=== PATIENT | male | born 2000 | race Caucasian/White ===

== ENCOUNTER → 2021-08-19 10:43 | Outpatient (CLI) | payer BC, SELFPAY ==
--- NOTE | 2021-08-19 11:15 | DI.RAD.S_ITS ---
PROCEDURE: XR KUB INDICATIONS: hematuria TECHNIQUE: One view of the abdomen acquired. COMPARISON: None. FINDINGS: Surgical changes and devices: None. Bowel: Scattered small bowel and colonic gas. No dilated loops of bowel seen. Soft tissues: Possible kidney stone at the right kidney measuring 0.4 cm. Alternatively, this could be a calcified granuloma in the spleen. No suspicious abdominal calcifications. Visualized solid organ contours appear normal in size. Bones: No suspicious bony lesions. IMPRESSION: Small calcification in the right lateral abdomen. This could represent a right kidney stone or calcified granuloma in the liver. Nonobstructive bowel gas pattern. Consider CT KUB for further evaluation. Dictated by: Jeffrey Mcdonnell M.D. on 08/19/2021 at 12:51 Approved by: Jeffrey Mcdonnell M.D. on 08/19/2021 at 12:54
== END ==
PROVIDERS: Referring Provider Nurse Practitioner Family; Visit Provider Nurse Practitioner Family
DX: R30.0 Dysuria (principal); R31.9 Hematuria, unspecified
CPT/HCPCS: 74018; 87086

== ENCOUNTER → 2021-08-25 14:35 | Outpatient (CLI) | payer BC, SELFPAY ==
--- NOTE | 2021-08-25 14:38 | DI.CT.S_ITS ---
PROCEDURE: CT KIDNEY URETER BLADDER (KUB) INDICATIONS: possible kidney stone TECHNIQUE: Axial sections were acquired from the lung bases to the pubic symphysis. Coronal and sagittal reformats were performed. For radiation dose reduction, the following was used: automated exposure control, adjustment of mA and/or kV according to patient size. COMPARISON: None. FINDINGS: Image quality: Excellent. Lung bases: Unremarkable. Heart: No significant findings. URINARY: Right Kidney: No stones or hydronephrosis. Incidental note made of 2.2 cm simple cyst. Right Ureter: No hydroureter. Left Kidney: No stones or hydronephrosis. Left Ureter: No hydroureter. Bladder: Normal wall thickness. No stones. ABDOMEN: Liver: Unremarkable. Gallbladder: Unremarkable. Biliary ducts: Unremarkable. Pancreas: Unremarkable. Spleen: Unremarkable. Adrenal Glands: Unremarkable. Stomach and Bowel: Stomach, small bowel loops, and colon are unremarkable. Peritoneum: No abnormal intraperitoneal fluid. No free air. Ventral Wall: No hernia. Abdominal Nodes: No enlarged retroperitoneal or mesenteric lymph nodes. Vessels: Aorta and inferior vena cava are normal in size. PELVIS: Pelvic Organs: Unremarkable. Pelvic Nodes: Unremarkable. Miscellaneous: No inguinal hernias are seen. Bones: Unremarkable. IMPRESSION: 1. No evidence of renal stone, ureteral stone, or hydronephrosis. 2. No evidence of acute abdominal process. Dictated by: Omari Olivera M.D. on 08/25/2021 at 15:33 Approved by: Omari Olivera M.D. on 08/25/2021 at 15:35
== END ==
PROVIDERS: Referring Provider Nurse Practitioner Family; Visit Provider Nurse Practitioner Family
DX: R31.9 Hematuria, unspecified (principal)
CPT/HCPCS: 74176

== ENCOUNTER → 2021-09-16 15:41 | Outpatient (CLI) | payer BC, SELFPAY ==
[2021-09-16 16:50] LABS: Appearance Urine UA CLEAR; Bilirubin Urine UA NEGATIVE (NEGATIVE); Color Urine UA YELLOW; Glucose Urine UA NEGATIVE (Negative); Ketones Urine UA NEGATIVE (NEGATIVE); Leukocyte Esterase Urine UA TRACE (NEGATIVE); Nitrite Urine UA NEGATIVE (Negative); Occult Blood Urine UA TRACE-INTACT (Negative); Protein Urine UA NEGATIVE (Negative); Urobilinogen Urine UA 0.2 E.U./dL (0.2)
[2021-09-16 16:51] LABS: Add Manual Diff / Slide Review NO; Basophils Absolute Auto 0 /uL (0-100); Basophils Percent Auto 0.5 % (0-2); Eosinophils Absolute Auto 200 /uL (0-450); Eosinophils Percent Auto 2.8 % (2-4); Hematocrit 44.3 % (41-53); Hemoglobin 15.9 g/dL (13.5-17.5); Lymphocytes Absolute Auto 2400 /uL (1100-4500); Mean Corpuscular HGB Conc 35.8 % (30-36); Mean Corpuscular Hemoglobin 30.9 PG (26-34); Mean Corpuscular Volume 86.2 fL (80-100); Monocytes Absolute Auto 600 /uL (0-900); Monocytes Percent Auto 8.1 % (3-14); Neutrophils Absolute Auto 4200 /uL (1500-7000); Neutrophils Percent Auto 56.6 % (50-75); Platelet Count 232 X10^3/uL (150-400); Red Blood Cell Count 5.14 X10^6/uL (4.5-5.9); Red Cell Distribution Width 12.6 % (11.6-14.8); White Blood Cell Count 7.4 X10^3/uL (4.5-11.0)
[2021-09-16 17:38] LABS: Alanine Aminotransferase 40 IU/L (<50); Albumin 4.7 g/dL (3.5-5.0); Albumin Globulin Ratio 1.7 (1.0-2.8); Alkaline Phosphatase 47 U/L (38-126); Aspartate Aminotransferase 35 IU/L (17-59); BUN Creatinine Ratio 21.2 (6-22); Bilirubin Total 0.5 mg/dL (0.2-1.3); Blood Urea Nitrogen 18 mg/dL (9-20); Calcium 9.3 mg/dL (8.4-10.2); Carbon Dioxide 25 mmol/L (22-32); Chloride 105 mmol/L (98-107); Estimated Glomerular Filt Rate > 60 mL/min (>60); Globulin 2.8 g/dL (1.7-4.1); Glucose 95 mg/dL (70-100); HEMOLYSIS 18 (0-50); Potassium 4.2 mmol/L (3.4-5.1); Sodium 138 mmol/L (137-145); Total Protein 7.5 g/dL (6.3-8.2)
[2021-09-16 18:28] LABS: Bacteria Urine None Seen; Culture Indicated Urine Cult Not Indicated; RBC Urine 10-30/HPF (0-5/HPF); Squamous Epithelial Cell Urine 1-5 /HPF (0-5/HPF); WBC Urine 1-5/HPF (0-5/HPF)
[2021-09-16 19:44] LABS: Urine N gonorrhoeae NOT DETECTED
[2021-09-16 20:20] LABS: Urine Chlamydia NOT DETECTED
== END ==
PROVIDERS: PCP Family Medicine; Referring Provider Family Medicine; Visit Provider Family Medicine
DX: R31.0 Gross hematuria (principal)
CPT/HCPCS: 36415; 80053; 81001; 85025; 87491; 87591

== ENCOUNTER 2022-04-12 12:47 | Emergency (ER) | payer OTHER, SELFPAY ==
[2022-04-12 12:49] VITALS: BP 146/83; PULSE 72; RESP 16; TEMP 36.9; O2SAT 99; BMI 36.7
[2022-04-12 13:47] LABS: RBC Urine 30-100/HPF (0-5/HPF); WBC Urine 1-5/HPF (0-5/HPF)
[2022-04-12 13:48] LABS: Bacteria Urine None Seen; Culture Indicated Urine Specimen Cultured
--- NOTE | 2022-04-12 16:00 | DI.CT.S_ITS ---
PROCEDURE: CT ABDOMEN PELVIS W CON INDICATIONS: hematuria TECHNIQUE: After the administration of oral and IV contrast, axial sections were acquired from the lung bases to the pubic symphysis. Coronal and sagittal reformats were performed. For radiation dose reduction, the following was used: automated exposure control, adjustment of mA and/or kV according to patient size. COMPARISON: [facility], CT, CT KIDNEY URETER BLADDER (KUB), 08/25/2021, 14:39. FINDINGS: Image quality: Excellent. Lung bases: Unremarkable. Heart: No significant findings. ABDOMEN: Liver: No focal lesion. Gallbladder: Not distended. Biliary ducts: Unremarkable. Pancreas: Unremarkable. Spleen: Unremarkable. Adrenal Glands: No nodule. Kidneys and Ureters: No hydronephrosis. Simple right renal cyst measuring 2 cm. Stomach and Bowel: Stomach, small bowel loops, and colon are unremarkable. A few colonic diverticuli. Normal appendix. Peritoneum: No abnormal intraperitoneal fluid. No free air. Ventral Wall: No hernia. Abdominal Nodes: No retroperitoneal or mesenteric adenopathy by size criteria. Vessels: Aorta and inferior vena cava are normal in size. PELVIS: Pelvic Organs: Unremarkable. Bladder: Distended. No stone. Pelvic Nodes: No enlarged lymph nodes. Miscellaneous: No inguinal hernias are seen. Bones: No suspicious lesion. Small bone islands. IMPRESSION: No acute abnormality identified. No hydronephrosis. No kidney stones seen. No free fluid. Dictated by: Jeffrey Mcdonnell M.D. on 04/12/2022 at 18:15 Approved by: Jeffrey Mcdonnell M.D. on 04/12/2022 at 18:19
[2022-04-12 16:26] LABS: Add Manual Diff / Slide Review NO; Basophils Absolute Auto 100 /uL (0-100); Eosinophils Absolute Auto 100 /uL (0-450); Eosinophils Percent Auto 1.5 % (2-4); Hematocrit 47.8 % (41-53); Hemoglobin 16.4 g/dL (13.5-17.5); Lymphocytes Absolute Auto 2900 /uL (1100-4500); Lymphocytes Percent Auto 33.6 % (25-40); Mean Corpuscular HGB Conc 34.2 % (30-36); Mean Corpuscular Hemoglobin 29.9 PG (26-34); Mean Corpuscular Volume 87.4 fL (80-100); Monocytes Absolute Auto 700 /uL (0-900); Monocytes Percent Auto 8.3 % (3-14); Neutrophils Absolute Auto 4900 /uL (1500-7000); Neutrophils Percent Auto 55.6 % (50-75); Platelet Count 284 X10^3/uL (150-400); Red Blood Cell Count 5.47 X10^6/uL (4.5-5.9); White Blood Cell Count 8.7 X10^3/uL (4.5-11.0)
[2022-04-12 16:38] LABS: Alanine Aminotransferase 41 IU/L (<50); Albumin 4.8 g/dL (3.5-5.0); Albumin Globulin Ratio 1.5 (1.0-2.8); Alkaline Phosphatase 57 U/L (38-126); Aspartate Aminotransferase 30 IU/L (17-59); BUN Creatinine Ratio 15.2 (6-22); Bilirubin Total 0.6 mg/dL (0.2-1.3); Blood Urea Nitrogen 15 mg/dL (9-20); Carbon Dioxide 26 mmol/L (22-32); Chloride 103 mmol/L (98-107); Estimated Glomerular Filt Rate > 60 mL/min (>60); Globulin 3.3 g/dL (1.7-4.1); Glucose 98 mg/dL (70-100); HEMOLYSIS 15 (0-50); Lipase 66 U/L (23-300); Sodium 139 mmol/L (137-145); Total Protein 8.1 g/dL (6.3-8.2)
[2022-04-12 18:29] VITALS: BP 119/62; PULSE 76; RESP 18; O2SAT 100
--- NOTE | 2022-04-12 18:56 | ED.MALEGU ---
HPI - Male Genitourinary <Kelli Emery PA-C - Last Filed: 04/12/22 19:18> General Chief complaint: Urogenital-Male Stated complaint: peeing blood/clots Time Seen by Provider: 04/12/22 14:31 Source: patient Mode of arrival: Ambulatory History of Present Illness HPI Narrative: 22-year-old male presents to the ED with a month of gross hematuria and small clots. Patient states that he has a history of hematuria, was evaluated last year for it with no resolution on etiology. Patient states that he has had the hematuria on and off for the last 2 years, and it spontaneously stops and starts. Patient also states that he had some hematuria in his childhood with no known etiology. Patient states that he was worked up by a urologist last year with no findings. Patient denies fever, chills, chest pain, shortness of breath, nausea, vomiting, dysuria, abdominal pain, flank pain, lightheadedness, dizziness, syncope. Patient states that he does feel the need to strain in order to urinate, is able to urinate, however feels that it is incomplete. Related Data Previous Rx's Medication Instructions Recorded phenazopyridine 200 mg tablet 200 mg PO TID 6 doses #9 tabs 09/16/21 (Pyridium) sulfamethoxazole 800 1 tab PO BID #20 tabs 09/16/21 mg-trimethoprim 160 mg tablet (Bactrim DS) Allergies Allergy/AdvReac Type Severity Reaction Status Date / Time diphenhydramine Allergy Mild Swelling Verified 04/12/22 12:49 [From Benadryl] Review of Systems <Kelli Emery PA-C - Last Filed: 04/12/22 19:18> Review of Systems ROS Unobtainable: All systems reviewed & are unremarkable except as noted in HPI and below Constitutional Constitutional: Denies chills, Denies fatigue, Denies fever(s), Denies frequent falls, Denies lethargy and Denies weakness Eyes Eyes: Denies change in vision, Denies eye discharge, Denies irritation and Denies loss of vision ENT Ears, Nose, Mouth, and Throat: Denies change in voice, Denies dizziness, Denies neck pain, Denies sore throat and Denies throat swelling Cardiovascular Cardiovascular: Denies chest pain, Denies irregular heart rhythm, Denies lightheadedness, Denies palpitations, Denies dyspnea, Denies dyspnea on exertion and Denies orthopnea Respiratory Respiratory: Denies cough, Denies dyspnea, Denies dyspnea on exertion and Denies wheezing Gastrointestinal Gastrointestinal: Denies abdominal pain, Denies change in bowel habits, Denies diarrhea, Denies nausea and Denies vomiting Genitourinary Genitourinary: Reports hematuria, Denies flank pain, Denies urinary incontinence and Denies urinary urgency Musculoskeletal Musculoskeletal: Denies back pain, Denies muscle weakness, Denies neck pain, Denies numbness and Denies tingling Integumentary/Breasts Skin/Breast: Denies pruritus, Denies erythema, Denies rash and Denies wounds Neurologic Neurologic: Denies behavioral changes, Denies confusion, Denies dizziness, Denies frequent falls, Denies loss of vision, Denies numbness, Denies tingling and Denies weakness Psychiatric Psychiatric: Denies anxiety, Denies behavioral changes, Denies confusion, Denies depression, Denies homicidal ideation and Denies suicidal ideation Endocrine Endocrine: Denies fatigue, Denies flushing and Denies palpitations Hematologic/Lymphatic Hematologic/Lymphatic: Denies easy bruising Allergic/Immunologic Allergic/Immunologic: Denies urticaria, Denies throat swelling and Denies wheezing Patient History <Kelli Emery PA-C - Last Filed: 04/12/22 19:18> Medical History Gross hematuria Surgical History Anesthesia [place] teeth removed (~2017) Social History Smoking Status: Never smoker Smoking Status: Never smoker alcohol intake frequency: holidays/special occasions only Substance Use Type: does not use Exam <Kelli Emery PA-C - Last Filed: 04/12/22 19:18> Narrative Exam Narrative: Const General:?cooperative, healthy appearing and comfortable [facility] Head:?normal to inspection Ears:?hearing grossly normal bilaterally Nose:?external nose normal Face and sinus:?normal facial exam and sinuses nontender Mouth:?oral mucosae normal Throat:?posterior oropharynx normal Eyes General:?appearance normal, both eyes and all related structures Neck Neck:?normal visual inspection and no lymphadenopathy noted Resp Effort & Inspection:?normal respiratory effort Auscultation:?clear to auscultation bilaterally Cardio Rate:?regular rate Rhythm:?regular rhythm GI Abdomen is soft, nondistended, nontender to palpation. There is no CVA tenderness. Neuro General:?patient alert, patient awake and patient oriented x3 Initial Vital Signs Initial Vital Signs: Vital Signs Temperature 98.5 F 04/12/22 12:49 Pulse Rate 72 04/12/22 12:49 Respiratory Rate 16 04/12/22 12:49 Blood Pressure 146/83 H 04/12/22 12:49 Pulse Oximetry 99 04/12/22 12:49 Oxygen Delivery Method 04/12/22 12:49 <Carlos Kellogg MD - Last Filed: 04/20/22 21:39> Initial Vital Signs Initial Vital Signs: Vital Signs Temperature 98.5 F 04/12/22 12:49 Pulse Rate 72 04/12/22 12:49 Respiratory Rate 16 04/12/22 12:49 Blood Pressure 146/83 H 04/12/22 12:49 Pulse Oximetry 99 04/12/22 12:49 Oxygen Delivery Method 04/12/22 12:49 Course <Kelli Emery PA-C - Last Filed: 04/12/22 19:18> Orders Ordered: ED Orders 04/12/22 12:54 Urine Culture Stat Urine Microscopic Stat 04/12/22 16:00 CT abdomen pelvis w con Stat CBC Auto Diff [Complete Blood Count AUTO DIFF] Stat CMP [Comprehensive Metabolic Panel] Stat Lipase Stat Vital Signs Vital signs: Vital Signs - 8 hr 04/12/22 12:49 04/12/22 18:29 Temperature 98.5 F Pulse Rate 72 76 Respiratory Rate 16 18 Blood Pressure 146/83 H 119/62 Pulse Oximetry 99 100 Oxygen Delivery Method Room Air Room Air <Carlos Kellogg MD - Last Filed: 04/20/22 21:39> Orders Ordered: ED Orders 04/12/22 12:54 Urine Culture Stat Urine Microscopic Stat 04/12/22 16:00 CT abdomen pelvis w con Stat CBC Auto Diff [Complete Blood Count AUTO DIFF] Stat CMP [Comprehensive Metabolic Panel] Stat Lipase Stat Vital Signs Vital signs: Vital Signs - 8 hr 04/12/22 12:49 04/12/22 18:29 Temperature 98.5 F Pulse Rate 72 76 Respiratory Rate 16 18 Blood Pressure 146/83 H 119/62 Pulse Oximetry 99 100 Oxygen Delivery Method Room Air Room Air MDM - Male Genitourinary <Kelli Emery PA-C - Last Filed: 04/12/22 19:18> Lab Data Result diagrams: 04/12/22 16:00 04/12/22 16:00 Labs: Lab Results 04/12/22 04/12/22 04/12/22 Range/Units 12:54 16:00 16:00 WBC 8.7 (4.5-11.0) X10^3/uL RBC 5.47 (4.5-5.9) X10^6/uL Hgb 16.4 (13.5-17.5) g/dL Hct 47.8 (41-53) % MCV 87.4 (80-100) fL MCH 29.9 (26-34) PG MCHC 34.2 (30-36) % RDW 13.0 (11.6-14.8) % Plt Count 284 (150-400) X10^3/uL Neut % (Auto) 55.6 (50-75) % Lymph % (Auto) 33.6 (25-40) % [place] % (Auto) 8.3 (3-14) % Eos % (Auto) 1.5 L (2-4) % Baso % (Auto) 1.0 (0-2) % Neut # (Auto) 4900 (1665-4643) /uL Lymph # (Auto) 2900 (3338-6820) /uL [place] # (Auto) 700 (0-900) /uL Eos # (Auto) 100 (0-450) /uL Baso # (Auto) 100 (0-100) /uL Sodium 139 (137-145) mmol/L Potassium 4.0 (3.4-5.1) mmol/L Chloride 103 (98-107) mmol/L Carbon Dioxide 26 (22-32) mmol/L BUN 15 (9-20) mg/dL Creatinine 0.99 (0.66-1.25) mg/dL Estimated GFR > 60 (>60) mL/min BUN/Creatinine Ratio 15.2 (6-22) Glucose 98 (70-100) mg/dL Calcium 9.0 (8.4-10.2) mg/dL Total Bilirubin 0.6 (0.2-1.3) mg/dL AST 30 (17-59) IU/L ALT 41 (<50) IU/L Alkaline Phosphatase 57 (38-126) U/L Total Protein 8.1 (6.3-8.2) g/dL Albumin 4.8 (3.5-5.0) g/dL Globulin 3.3 (1.7-4.1) g/dL Albumin/Globulin Ratio 1.5 (1.0-2.8) Lipase 66 (23-300) U/L Urine RBC 30-100/hpf H (0-5/HPF) Urine WBC 1-5/hpf (0-5/HPF) Urine Bacteria None seen (None) Ur Culture Indicated? Specimen cultured Urine Dip Bedside Urine Glucose Negative Bedside Urine Bilirubin - Negative Bedside Urine Ketone - Negative Urine Specific [place] 1.030 Bedside Urine Occult Blood +++ Bedside Urine pH 6.0 Bedside Urine Protein +/- 15 Bedside Urine Urobilinogen - Negative Bedside Urine Nitrite - Negative Bedside Urine Leukocytes - Negative Esterase MDM Narrative Medical decision making narrative: 22-year-old male presents to the ED with a month of gross hematuria and small clots. Patient states that he has a history of hematuria, was evaluated last year for it with no resolution on etiology. Concern for UTI versus nephrolithiasis versus STI versus trauma versus anemia versus other renal etiology versus other. Discussed potential causes, patient declined STI testing, given that it is a unlikely cause. Labs and UA without acute findings. CT abdomen pelvis did not show any acute findings. There was an incidental finding of a right-sided 2 cm renal cyst that remains largely unchanged from the last CT in August 2021. While it is unclear the etiology of the hematuria, patient is able to urinate and no emergency was identified today. Strongly recommend patient follow-up with urology for further evaluation and treatment. Patient agrees to follow-up with [facility]. ED return precautions were discussed with patient. Patient verbalized understanding. ? Disposition: see below, along with detailed discharge instructions that have been reviewed with patient as well as indications for ED re-evaluation and additional outpatient follow up <Carlos Kellogg MD - Last Filed: 04/20/22 21:39> Lab Data Labs: Lab Results 04/12/22 04/12/22 04/12/22 Range/Units 12:54 16:00 16:00 WBC 8.7 (4.5-11.0) X10^3/uL RBC 5.47 (4.5-5.9) X10^6/uL Hgb 16.4 (13.5-17.5) g/dL Hct 47.8 (41-53) % MCV 87.4 (80-100) fL MCH 29.9 (26-34) PG MCHC 34.2 (30-36) % RDW 13.0 (11.6-14.8) % Plt Count 284 (150-400) X10^3/uL Neut % (Auto) 55.6 (50-75) % Lymph % (Auto) 33.6 (25-40) % [place] % (Auto) 8.3 (3-14) % Eos % (Auto) 1.5 L (2-4) % Baso % (Auto) 1.0 (0-2) % Neut # (Auto) 4900 (1120-5812) /uL Lymph # (Auto) 2900 (8335-3570) /uL [place] # (Auto) 700 (0-900) /uL Eos # (Auto) 100 (0-450) /uL Baso # (Auto) 100 (0-100) /uL Sodium 139 (137-145) mmol/L Potassium 4.0 (3.4-5.1) mmol/L Chloride 103 (98-107) mmol/L Carbon Dioxide 26 (22-32) mmol/L BUN 15 (9-20) mg/dL Creatinine 0.99 (0.66-1.25) mg/dL Estimated GFR > 60 (>60) mL/min BUN/Creatinine Ratio 15.2 (6-22) Glucose 98 (70-100) mg/dL Calcium 9.0 (8.4-10.2) mg/dL Total Bilirubin 0.6 (0.2-1.3) mg/dL AST 30 (17-59) IU/L ALT 41 (<50) IU/L Alkaline Phosphatase 57 (38-126) U/L Total Protein 8.1 (6.3-8.2) g/dL Albumin 4.8 (3.5-5.0) g/dL Globulin 3.3 (1.7-4.1) g/dL Albumin/Globulin Ratio 1.5 (1.0-2.8) Lipase 66 (23-300) U/L Urine RBC 30-100/hpf H (0-5/HPF) Urine WBC 1-5/hpf (0-5/HPF) Urine Bacteria None seen (None) Ur Culture Indicated? Specimen cultured Urine Dip Bedside Urine Glucose Negative Bedside Urine Bilirubin - Negative Bedside Urine Ketone - Negative Urine Specific [place] 1.030 Bedside Urine Occult Blood +++ Bedside Urine pH 6.0 Bedside Urine Protein +/- 15 Bedside Urine Urobilinogen - Negative Bedside Urine Nitrite - Negative Bedside Urine Leukocytes - Negative Esterase Discharge Plan Departure Patient Disposition: Home Clinical Impression: Gross hematuria Instructions: DI for Hematuria Activity Restrictions/Additional Instructions: You were evaluated in the ED today for blood in the urine. Your labs, urine, CT abdomen pelvis were without any acute findings to explain your symptoms. Given that you have had the symptoms over a longer period of time, it is recommended that you seek care with Urology as soon as possible. You may call [facility] at [phone] for an appointment. Please return to the ED if your symptoms worsen, you are unable to urinate. Prescriptions: No Action sulfamethoxazole-trimethoprim [Bactrim DS] 800-160 mg tablet 1 tab PO BID Qty: 20 0RF phenazopyridine [Pyridium] 200 mg tablet 200 mg PO TID Qty: 9 0RF Referrals: Neftali Lamar DO [Primary Care Provider] - Stand Alone Forms: Patient Portal/API <Carlos Kellogg MD - Last Filed: 04/20/22 21:39> Cosign ED Attending Cosjackelynature Attestation: I was immediately available in the department for consultation. Documentation has been reviewed. I agree with assessment and plan.
== END 2022-04-12 19:06 | disposition home or self-care (01) ==
PROVIDERS: Emergency Medicine; Emergency Provider Student in an Organized Health Care Education/Training Program; PCP Family Medicine
DX: R31.0 Gross hematuria (principal)
CPT/HCPCS: 51798; 74177; 80053; 81003; 81015; 83690; 85025; 87086; 99282; 99284; Q9967

== ENCOUNTER → 2022-05-12 09:22 | Outpatient (CLI) | payer OTHER, SELFPAY ==
[2022-05-12 10:22] LABS: Free T4, Direct Thyroxine 1.06 ng/dL (0.78-2.19)
[2022-05-12 10:36] LABS: Thyroid Stimulating Hormone 2.69 uIU/mL (0.47-4.68)
[2022-05-12 19:53] LABS: Hemoglobin A1C% w Est Avg Glu 5.3 % (4.0-6.0)
== END ==
PROVIDERS: PCP Family Medicine; Referring Provider Family Medicine; Visit Provider Family Medicine
DX: Z00.00 Encounter for general adult medical examination without abnormal findings (principal); Z83.3 Family history of diabetes mellitus; Z83.49 Family history of other endocrine, nutritional and metabolic diseases
CPT/HCPCS: 36415; 83036; 84439; 84443

== ENCOUNTER 2022-05-16 10:22 | Day surgery (SDC) | payer OTHER, SELFPAY ==
[2022-05-13 11:58] VITALS: BMI 39.3
[2022-05-16] VITALS (7 sets, daily range): BP systolic 115–134; BP diastolic 63–94; PULSE 77–97; RESP 14–20; TEMP 36.3–36.8; O2SAT 96–99; BMI 39.1
[2022-05-16] MEDS: LACTATED RINGERS 1,000 ML 21 ML IV (11:32)
[2022-05-16] MEDS: CEFAZOLIN VIAL 3 GM in SODIUM CHLORIDE 0.9% 100 ML IV (12:02)
--- NOTE | 2022-05-16 12:20 | SUR.OPER ---
Lithotomy on padded OR bed, head on pillow, arms secured on padded arm boards at <90 degrees abduction. Legs secured in padded yellow fins stirrups.
[2022-05-16] MEDS: BUPIVACAINE 0.25% (PF) VIAL 30 ML INJ (12:25)
--- NOTE | 2022-05-16 12:47 | PM.OP.1 ---
Operative Date/Time/Diagnoses Date of procedure: 05/16/22 Time of procedure: 12:47 Pre-op diagnosis: 1. Meatal stenosis. 2. Severe lower urinary tract symptoms. 3. Intermittent gross hematuria. Post-op diagnosis: same Procedure & Clinicians Procedure: 1. Urethral meatotomy. 2. Cystoscopy/dilation urethral stricture. 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 Severe lower urinary tract symptoms. 2. Intermittent gross hematuria. Surgeon: Otis Mcfarland Click Yes if Unassisted: Yes Anesthesia Type: General Operative Notes Findings: 1. Small aperture meatus. 2. Urethra-normal caliber penile segment. Tight, annular stricture encountered at junction of the bulbar and penile segment. More proximal endoscopy was not performed due to need for urethral stricture dilation. Closure Type: primary Specimen(s): none sent Applied: catheter (Twenty [place] silicone [place] tip catheter.) Estimated Blood Loss (mL): 2 Blood products transfused: none Procedure in detail: The patient was positioned in supine was administered general anesthesia. He was then repositioned in semi lithotomy and lower abdomen, genitalia, and groin were then prepped and draped in sterile fashion. 0.25% Marcaine without epinephrine was then used to infiltrate the inferior lateral skin and subcutaneous tissue of the norah meatal area. A straight hemostatic clamp was then applied ventrally, at 6 o'clock over a approximately 7 mm length and was then engaged for crush hemostasis. The hemostat was then released and the tissue was divided in the midline. Two interrupted 4-0 chromic were placed on each the right, and the left using a Lembert mattress technique so as to separate the freshly divided edges. The 17 [place] panendoscope was then prepared and advanced into the distal urethra and advanced proximally with the findings as described above. A 0.35 hybrid guidewire was then requested and was advanced under direct visualization through the tight mid penile urethral stricture. The panendoscope was then backloaded off the hybrid guidewire. Now the serpentine urethral dilators were utilized to dilate the segment to 20 [place]. Repeat endoscopy was not performed. Rather, a 20 [place] tip silicone catheter was advanced over the hybrid guidewire and then proximally into the bladder lumen. Blood-tinged urine was then returned from the catheter and the balloon was inflated to 10 cc. The wire was then removed. The bladder is drained completely before the catheter was connected to gravity drainage. The patient was then repositioned in supine, was awakened common then was transferred to [facility] awake and in stable condition. Complications: none Post-operative Condition: stable Disposition: PACU Plan for aftercare: Discharge home.
[2022-05-16] MEDS: OXYCODONE/ACETAMINOPHEN 5/325 TABLET 1 TAB PO ×2 (12:58→14:16)
--- NOTE | 2022-05-16 14:25 | SUR.PHASEII ---
Extensive teaching given regarding tirado care and changing of bags. Post op appt made. Small amt bloody drng from meatus. Bacitracin applied.
--- NOTE | 2022-05-16 14:31 | SUR.PHASEII ---
August sent home with leg bag on. ciara Yan sent home. Also sent with 4x4's, alcohol prep pads, and Bacitracin.
== END 2022-05-16 14:23 | disposition home or self-care (01) ==
PROVIDERS: PCP Family Medicine; Referring Provider Specialist; Visit Provider Specialist
PROC: 0TJB8ZZ Inspection of Bladder, Via Natural or Artificial Opening Endoscopic (ICD-10-PCS; CPT 52000; principal; 2022-05-16 11:45)
PROC: (CPT 52281; 2022-05-16 11:45)
DX: N35.911 Unspecified urethral stricture, male, meatal (principal); R31.0 Gross hematuria; R39.15 Urgency of urination
CPT/HCPCS: 52281; 82962; J0690; J1100; J2405; J2704; J3010; J3490

== ENCOUNTER 2023-05-09 00:57 | Emergency (ER) | payer OTHER, SELFPAY ==
[2023-05-09] VITALS (7 sets, daily range): BP systolic 119–137; BP diastolic 63–74; PULSE 76–84; RESP 18; TEMP 36.8; O2SAT 96–98; BMI 36.7
--- NOTE | 2023-05-09 02:37 | ED.EPISTAXIS ---
HPI - Epistaxis General Chief complaint: Nasal Problem Stated complaint: throwing up blood, nose bleeds, lightheaded, dizzy Time Seen by Provider: 05/09/23 02:31 Source: patient Mode of arrival: Ambulatory History of Present Illness HPI Narrative: Patient 23-year-old healthy male who presents today with nosebleed out of left side and vomiting blood. He reports he had a couple different nosebleeds today. But he did swallow quite a bit of blood. It has stopped and reoccurred a couple of times. It has currently stopped again. He has not on any antiplatelet or anticoagulation medication. and he both got concerned when he threw up blood this evening. He also reports that he feels a little dizzy and lightheaded. He is not on any antiplatelet or anticoagulation medication. He has been sitting with gauze and nasal clamp in the ED and bleeding has subsided. Related Data Home Medications Medication Instructions Recorded Confirmed cetirizine [Allergy Relief PO 08/16/22 08/31/22 (cetirizine)] Allergies Allergy/AdvReac Type Severity Reaction Status Date / Time diphenhydramine Allergy Severe Swelling Verified 08/31/22 11:17 [From Benadryl] Patient History Medical History Attention deficit disorder predominant inattentive type Gross hematuria History of urethral stricture Incomplete bladder emptying Lower urinary tract symptoms (LUTS) Meatal stenosis Urethral stricture in male Well adult exam Surgical History Anesthesia [place] teeth removed (~2017) Family History Brother Diabetes mellitus Sister Thyroid disease Grandfather Hearing impairment Social History marital status: number of children: 0 household members: spouse Smoking Status: Never smoker alcohol intake: current Smoking Status: Never smoker alcohol intake frequency: holidays/special occasions only Substance Use Type: does not use Exam Initial Vital Signs Initial Vital Signs: Vital Signs Pulse Oximetry 96 05/09/23 01:03 GENERAL: Alert well-appearing 23-year-old male NOSE: No active bleeding seen in left nare, no blood and pharynx CARDIOVASCULAR: peripheral pulses in tact, cap refill <2 sec RESPIRATORY: No respiratory distress, speaks in full sentences without difficulty EXTREMITIES: Normal range of motion, no clubbing or edema. Neurovascularly intact NEUROLOGICAL: Cranial nerves II through XII grossly intact. Normal gait and speech. SKIN: Warm, dry, no petechiae, no rashes or lesions. Course Orders Ordered: Discontinued Medications Oxymetazoline HCl (Oxymetazoline Nasal [place] 30 Ml) 2 sprays NASAL NOW ONE Stop: 05/09/23 02:44 Last Admin: 05/09/23 02:46 Dose: 2 sprays Documented By: AB Vital Signs Vital signs: Vital Signs - 8 hr 05/09/23 01:03 05/09/23 01:04 05/09/23 01:04 Temperature Pulse Rate 83 Respiratory Rate Blood Pressure 137/74 Pulse Oximetry 96 98 Oxygen Delivery Method 05/09/23 01:06 05/09/23 01:30 05/09/23 01:30 Temperature 98.2 F Pulse Rate 84 76 Respiratory Rate 18 Blood Pressure 137/74 120/65 Pulse Oximetry 97 98 Oxygen Delivery Method Room Air 05/09/23 01:42 05/09/23 01:42 05/09/23 02:00 Temperature Pulse Rate 80 78 Respiratory Rate Blood Pressure 127/63 Pulse Oximetry 97 98 Oxygen Delivery Method 05/09/23 02:00 05/09/23 02:30 05/09/23 02:30 Temperature Pulse Rate 80 Respiratory Rate Blood Pressure 119/63 119/69 Pulse Oximetry 98 Oxygen Delivery Method MDM - Epistaxis MDM Narrative Medical decision making narrative: Patient is a healthy 23-year-old male who presents with recurrent left-sided nosebleed throughout the day. It sounds as though he did bleed quite a lot and swallowed a bit of blood causing him to vomit blood. This time he has no risk factors bleeding has stopped no evidence of posterior epistaxis. Not on any antiplatelet or anticoagulation medications. Long discussion with the in his about treatment at home. He has given a nasal clamp and Afrin along with strict return precautions. At this time they both feel comfortable going. Discharge Plan Departure Patient Disposition: Home Clinical Impression: Acute anterior epistaxis Instructions: DI for Nosebleed Activity Restrictions/Additional Instructions: *You have been diagnosed with nosebleed *What to do: At this time if bleeding should reoccur but 2-3 squirts of Afrin in the left near apply nasal clamp may use ice keep head tilted 4. Bleeding should stop in under 60 minutes. However if pouring down your throat unable to stop passing out or any worsening symptoms return to ED I do recommend humidifier may try a Q-tip of Vaseline or antibiotic ointment in the left side to help keep it moist *Continue to take medications as directed *Follow up with your primary care provider in 2-3 days or call [phone] *Return to ER if you should have persistent nosebleed passing out or any new, worsening or concerning symptoms Prescriptions: No Action cetirizine [Allergy Relief (cetirizine)] PO Referrals: Neftali Lamar DO [Primary Care Provider] - Stand Alone Forms: Patient Portal/API
[2023-05-09] MEDS: OXYMETAZOLINE NASAL SPRAY 30 ML 2 SPRAYS NASAL (02:46)
== END 2023-05-09 02:50 | disposition home or self-care (01) ==
PROVIDERS: Emergency Provider Emergency Medicine; PCP Family Medicine
DX: R04.0 Epistaxis (principal)
CPT/HCPCS: 99282

== ENCOUNTER → 2024-09-02 14:47 | Outpatient (CLI) | payer OTHER, SELFPAY ==
[2024-09-02 15:06] LABS: Add Manual Diff / Slide Review NO; Basophils Absolute Auto 100 /uL (0-100); Basophils Percent Auto 0.5 % (0-2); Eosinophils Absolute Auto 100 /uL (0-450); Eosinophils Percent Auto 1.1 % (2-4); Hematocrit 46.8 % (41-53); Lymphocytes Absolute Auto 2100 /uL (1100-4500); Lymphocytes Percent Auto 22.9 % (25-40); Mean Corpuscular HGB Conc 34.2 % (30-36); Mean Corpuscular Hemoglobin 29.8 PG (26-34); Mean Corpuscular Volume 87.2 fL (80-100); Monocytes Absolute Auto 800 /uL (0-900); Monocytes Percent Auto 8.2 % (3-14); Neutrophils Absolute Auto 6200 /uL (1500-7000); Neutrophils Percent Auto 67.3 % (50-75); Platelet Count 295 X10^3/uL (150-400); Red Blood Cell Count 5.36 X10^6/uL (4.5-5.9); Red Cell Distribution Width 12.9 % (11.6-14.8); White Blood Cell Count 9.2 X10^3/uL (4.5-11.0)
[2024-09-02 15:11] LABS: Appearance Urine UA CLEAR; Bilirubin Urine UA NEGATIVE (NEGATIVE); Color Urine UA YELLOW; Glucose Urine UA NEGATIVE (Negative); Ketones Urine UA NEGATIVE (NEGATIVE); Leukocyte Esterase Urine UA NEGATIVE (NEGATIVE); Nitrite Urine UA NEGATIVE (Negative); Occult Blood Urine UA 1+ (Negative); Protein Urine UA NEGATIVE (Negative); Specific Gravity Urine UA 1.015 (1.000-1.035); Urobilinogen Urine UA 0.2 E.U./dL (0.2)
[2024-09-02 15:18] LABS: Bacteria Urine Occasional (0-1); Culture Indicated Urine Cult Not Indicated; RBC Urine 5-10/HPF (0-5/HPF); Squamous Epithelial Cell Urine 0-1 /HPF (0-5/HPF); Urine Volume 10mL (spun); WBC Urine 0-1/HPF (0-5/HPF)
[2024-09-02 15:38] LABS: Alanine Aminotransferase 52 IU/L (<50); Albumin 4.7 g/dL (3.5-5.0); Albumin Globulin Ratio 1.6 (1.0-2.8); Alkaline Phosphatase 55 U/L (38-126); Aspartate Aminotransferase 38 IU/L (17-59); BUN Creatinine Ratio 18.7 (6-22); Bilirubin Total 0.6 mg/dL (0.2-1.3); Blood Urea Nitrogen 20 mg/dL (9-20); Calcium 9.3 mg/dL (8.4-10.2); Carbon Dioxide 21 mmol/L (22-32); Chloride 106 mmol/L (98-107); Estimated Glomerular Filt Rate > 60 mL/min (>60); Globulin 2.9 g/dL (1.7-4.1); Glucose 104 mg/dL (70-99); HEMOLYSIS < 15 (0-50); Potassium 4.5 mmol/L (3.4-5.1); Sodium 136 mmol/L (137-145); Total Protein 7.6 g/dL (6.3-8.2)
== END ==
PROVIDERS: PCP Family Medicine; Referring Provider Family Medicine; Visit Provider Family Medicine
DX: R31.0 Gross hematuria (principal)
CPT/HCPCS: 80053; 81001; 85025

== ENCOUNTER → 2024-09-17 15:16 | Outpatient (CLI) | payer OTHER, SELFPAY ==
--- NOTE | 2024-09-17 15:18 | DI.CT.S_ITS ---
PROCEDURE: CT KIDNEY URETER BLADDER (KUB) INDICATIONS: EVAL AND TREAT TECHNIQUE: After the administration of oral contrast, 5 mm thick sections acquired from the diaphragms to the symphysis. 5 mm coronal and sagittal reformats were performed. For radiation dose reduction, the following was used: automated exposure control, adjustment of mA and/or kV according to patient size. COMPARISON: [facility], CT, CT KIDNEY URETER BLADDER (KUB), 08/25/2021, 14:39. FINDINGS: Image quality: Diagnostic. Lower Chest: No significant findings. ABDOMEN: Liver: No contour-deforming mass. Gallbladder: No radiopaque gallstones or wall thickening. Biliary ducts: No biliary dilation. Pancreas: No ductal dilation. Spleen: Size is within normal limits. Adrenal Glands: No adrenal nodules. Kidneys and Ureters: Stable right renal hypodensity, likely cyst. Left kidney unremarkable. No calculi or hydronephrosis Stomach and Bowel: Normal colonic caliber, without significant wall thickening. Peritoneum: No abnormal intraperitoneal fluid. No free air. Ventral Wall: No significant hernia. Abdominal Nodes: No retroperitoneal or mesenteric adenopathy by size criteria. Vessels: Aorta and inferior vena cava are normal in size. PELVIS: Pelvic Organs: Unremarkable. Bladder: Unremarkable. Pelvic Nodes: No enlarged lymph nodes. Miscellaneous: No inguinal hernias are seen. Bones: No aggressive osseous abnormality. IMPRESSION: Unremarkable noncontrast CT abdomen and pelvis. No change from the Approved by: Joseph Spears M.D. on 09/18/2024 at 17:01
== END ==
PROVIDERS: PCP Family Medicine; Referring Provider Family Medicine; Visit Provider Family Medicine
DX: N35.919 Unspecified urethral stricture, male, unspecified site (principal); R33.9 Retention of urine, unspecified; R39.9 Unspecified symptoms and signs involving the genitourinary system; Z87.448 Personal history of other diseases of urinary system
CPT/HCPCS: 74176